=== PATIENT | female | born 1980 | race Two or more races ===

== ENCOUNTER → 2020-08-23 | Outpatient (CLI) | payer OTHER ==
[~2020-08-23] MED LIST: PROP10TA16 PO; PROP20TA PO; PROP50TA3 PO
== END | disposition home or self-care (01) ==
LOC: RAD 13:04
PROVIDERS: ATTEND Psychiatry & Neurology Neurology
DX: H05.20 Unspecified exophthalmos (principal); E05.00 Thyrotoxicosis with diffuse goiter without thyrotoxic crisis or storm; M62.89 Other specified disorders of muscle
CPT/HCPCS: 70480; 70540